=== PATIENT | male | born 1960 | race Caucasian/White ===

== ENCOUNTER 2019-03-04 23:43 | Inpatient (IN) | payer MEDICARE ==
[~2019-03-04] VITALS: Ht 185.4 cm; Wt 66.5 kg
[2019-03-05 07:51] LABS: Basophils # (auto) 0.1 uL; Basophils % (auto) 1.3 % (0.0-2.0); Eosinophils # (auto) 0.1 uL; Eosinophils % (auto) 2.1 % (0.0-7.0); Hematocrit 36.1 % (41.0-53.0); Hemoglobin 12.5 g/dL (13.5-17.5); Lymphocytes # (auto) 1.1 uL; Lymphocytes % (auto) 24.2 % (10.0-50.0); Mean Corpuscular Hemoglobin 32.8 pg (28.0-32.0); Mean Corpuscular Hgb Conc. 34.7 g/dL (32.0-36.0); Mean Corpuscular Volume 94.6 fL (80.0-100.0); Monocytes # (auto) 0.5 uL; Monocytes % (auto) 11.5 % (0.0-12.0); Neutrophils # (auto) 2.7 uL; Neutrophils % (auto) 60.9 % (37.0-80.0); Nucleated Red Blood Cells % 0.1 %; Platelet Count (auto) 312 10^3/uL (140-450); Red Blood Cells 3.82 10^6/uL (4.5-5.90); Red Cell Distribution Width 12.9 % (11.8-14.3); White Blood Cell 4.4 10^3/uL (4.4-10.8)
[2019-03-05 08:00] LABS: Urine Bacteria NONE SEEN /hpf (None Seen); Urine Blood Negative /uL (Negative); Urine Mucus FEW (None Seen); Urine Specific Gravity 1.015 (1.001-1.035); Urine Sperm PRESENT /hpf (None Seen); Urine WBC 1 /hpf (0 - 3)
[2019-03-05 08:08] LABS: BUN/Creatinine Ratio 13.8; Calcium 8.1 mg/dL (8.5-10.1); Potassium 4.3 mmol/L (3.5-5.1)
[2019-03-05] MEDS ORDERED: SODIUM CHLORIDE 0.9% 1,000 ML IV ONE ×2 (08:22)
[2019-03-05] MEDS ORDERED: AZITHROMYCIN 500MG/ 250ML 250 ML IV ONE (08:30)
[2019-03-05] MEDS ORDERED: cefTRIAXone 1GM/50ML D5W 50 ML IV ONE (08:30)
[2019-03-05] MEDS ORDERED: ALBUTEROL SULF 2.5 MG/0.5ML(0.5%) NEB SOLN NEB PRN (09:45)
[2019-03-05] MEDS ORDERED: PROMETHAZINE HCL 25 MG/ML 1ML IV PRN (09:45)
[2019-03-05] MEDS ORDERED: LEVOFLOXACIN 500MG 100 ML IV ONE (09:45)
[2019-03-05] MEDS ORDERED: ACETAMINOPHEN 500 MG TAB PO PRN (09:45)
[2019-03-05] MEDS ORDERED: NITROGLYCERIN 0.4 MG SL TAB SL PRN (09:45)
[2019-03-05] MEDS ORDERED: TEMAZEPAM 15 MG CAP PO PRN (09:45)
[2019-03-05] MEDS ORDERED: MORPHINE SULF INJ 2 MG/ML SYRINGE 1ML IV PRN (09:45)
[2019-03-05 10:15] LABS: CRP High Sensitivity 1.68 mg/dL (< 0.3)
[2019-03-05] MEDS: ENOXAPARIN SOD 40 MG/0.4 ML SYRINGE SC SCH (10:17)
[2019-03-05] MEDS: FAMOTIDINE (10MG/ML) 2ML VL IV SCH ×2 (10:23→21:08)
--- NOTE | 2019-03-05 10:45 | NUR ---
Telemetry admit from ER WILLY CONTRERAS admitted to Telemetry unit after SBAR received. Patient oriented to PEEWEE VERA, primary RN, unit, room, bed, and unit policies regarding patient care and visiting hours. Patient now on continuous telemetry monitoring, tele box # [id number] and telemetry reading on arrival to unit is . Patient placed on bedside oxygen, weighed by bed scale and encouraged to call if they need something. All questions and concerns addressed, patient verbalized understanding.
--- NOTE | 2019-03-05 11:00 | NUR ---
Wound photos taken to right leg.
[2019-03-05] MEDS: SODIUM CHLORIDE 0.9% 1,000 ML IV SCH ×2 (11:19→19:34)
[2019-03-05] MEDS: ALBUTEROL SULF 2.5 MG/0.5ML(0.5%) NEB SOLN NEB SCH ×2 (11:36→19:43)
[2019-03-05] MEDS: LEVOFLOXACIN 500MG 100 ML IV SCH (12:24)
[2019-03-05 12:39] VITALS: BP 136/86
[2019-03-05 13:00] VITALS: BP 117/77
[2019-03-05] MEDS: CLINDAMYCIN 600MG IV 50 ML IV SCH ×2 (13:53→21:08)
--- NOTE | 2019-03-05 17:12 | NUR ---
Received a call from dr. Ferguson stated will see patient tomorrow, NPO patient now.
[2019-03-05 17:18] VITALS: BP 145/86
--- NOTE | 2019-03-05 19:30 | NUR ---
Opening shift note Patient in bed alert and oriented x 4, verbally coherent, able to make needs known. Patient's respiration even and unlabored, denies pain and discomfort at this time. Plan of care discussed, patient verbalized understanding. Family at bedside. All needs attended, will continue to monitor. Addendum: 03/05/19 at 2056 by Aisha Marks RN Correction: no family at bedside.
--- NOTE | 2019-03-05 19:48 | NUR ---
RT NOTE PT WAS SEEN BY RT FOR HHN TX. PT TOLERATES WELL VIA MASK. NO ADVERSE REACTION NOTED. CONT ORDERED. POX 99% Addendum: 03/05/19 at 1948 by Hellen Ann RT Amended: Links added.
[2019-03-05] MEDS: traMADol HCL 50 MG TAB PO PRN (21:08)
[2019-03-05 22:00] VITALS: BP 133/84
[2019-03-06] MEDS: ALBUTEROL SULF 2.5 MG/0.5ML(0.5%) NEB SOLN NEB SCH ×3 (00:42→13:19)
--- NOTE | 2019-03-06 00:44 | NUR ---
RT NOTE PT WAS SEEN BY RT FOR HHN TX. PT TOLERATES WELL VIA MASK. NO ADVERSE REACTION NOTED. CONT ORDERED. POX 94% Addendum: 03/06/19 at 0045 by Hellen Ann RT Amended: Links added.
--- NOTE | 2019-03-06 04:34 | NUR ---
URINE SUKUMAR CX SAMPLE OBTAINED AND SENT TO LAB VIA BULLET.
[2019-03-06 05:00] VITALS: BP 142/86
[2019-03-06] MEDS: SODIUM CHLORIDE 0.9% 1,000 ML IV SCH (05:34)
[2019-03-06] MEDS: CLINDAMYCIN 600MG IV 50 ML IV SCH (06:07)
[2019-03-06 06:52] LABS: Basophils # (auto) 0.1 uL; Basophils % (auto) 1.9 % (0.0-2.0); Eosinophils # (auto) 0.1 uL; Eosinophils % (auto) 2.3 % (0.0-7.0); Hematocrit 39.2 % (41.0-53.0); Hemoglobin 13.7 g/dL (13.5-17.5); Lymphocytes # (auto) 1.1 uL; Lymphocytes % (auto) 24.2 % (10.0-50.0); Mean Corpuscular Hgb Conc. 34.9 g/dL (32.0-36.0); Mean Corpuscular Volume 94.5 fL (80.0-100.0); Monocytes # (auto) 0.4 uL; Monocytes % (auto) 8.6 % (0.0-12.0); Neutrophils # (auto) 2.8 uL; Nucleated Red Blood Cells % 0.1 %; Platelet Count (auto) 359 10^3/uL (140-450); Red Blood Cells 4.15 10^6/uL (4.5-5.90); Red Cell Distribution Width 12.6 % (11.8-14.3); White Blood Cell 4.5 10^3/uL (4.4-10.8)
[2019-03-06 06:55] LABS: INR 1.09 (0.9-1.15); Partial Thromboplastin Time 27.2 sec (23.64-32.05)
[2019-03-06 06:59] LABS: Albumin 2.6 g/dL (3.4-5.0); BUN/Creatinine Ratio 9.7; Calcium 8.6 mg/dL (8.5-10.1); Magnesium 2.1 mg/dL (1.6-2.6); Potassium 4.2 mmol/L (3.5-5.1)
[2019-03-06 07:01] LABS: Bilirubin, Total 0.7 mg/dL (0.2-1.0); Phosphorus 4.3 mg/dL (2.5-4.90); Total Protein 7.7 g/dL (6.4-8.2)
--- NOTE | 2019-03-06 07:02 | NUR ---
MRSA SWAB SPECIMEN OBTAINED SENT TO LAB VIA BULLET.
--- NOTE | 2019-03-06 07:10 | NUR ---
Resp cx specimen obtained sent to lab via bullet.
--- NOTE | 2019-03-06 08:00 | NUR ---
Opening Shift Note Assumed care of patient, awake and alert. No S/S of distress/SOB. Instructed on POC and to call for assist PRN. Bed in lowest position with siderails up x2 and call light within reach. will continue to monitor for changes Q1hr and PRN.
[2019-03-06 09:00] VITALS: BP 123/76
[2019-03-06] MEDS: FAMOTIDINE (10MG/ML) 2ML VL IV SCH (09:48)
[2019-03-06] MEDS: traMADol HCL 50 MG TAB PO PRN (09:49)
[2019-03-06] MEDS: ENOXAPARIN SOD 40 MG/0.4 ML SYRINGE SC SCH (09:50)
[2019-03-06] MEDS: LEVOFLOXACIN 500MG 100 ML IV SCH (09:50)
--- NOTE | 2019-03-06 10:30 | NUR ---
SURGICAL CONSULT Per Dr. Ferguson unable to perform surgery at this time secondary to pneumonia.
--- NOTE | 2019-03-06 11:15 | NUR ---
WOUND CARE NOTE: IN TO SEE PATIENT FOR WOUND ON RIGHT LEG. WOUND WAS PHOTOGRAPHED BY BEDSIDE NURSE UPON ADMIT. PATIENT ADVISED ME THAT HE WILL BE DISCHARGED SHORTLY D/T A FAMILY ISSUE. CLEANSED AND DRESSED WOUND TO THE RIGHT LEG AT THIS TIME. PATIENT ADVISED TO FOLLOW UP WITH HIS TRANSPORTATION MECHANIC POST DISCHARGE FOR HIS WOUND. PATIENT VERBALIZED UNDERSTANDING. PATIENT WILL DISCHARGE SHORTLY.
--- NOTE | 2019-03-06 13:19 | NUR ---
DISCHARGE Discharge instructions given as ordered. Encouraged to establish and follow up with PMD as instructed. All questions and concerns addressed, patient verbalized understanding. Medication reconciliation form completed and copy given to patient. IV removed with catheter intact and pressure dressing applied. Telemetry unit returned to ICU. Patient ambulated to vehicle with all personal belongings. No distress noted at time of departure.
== END 2019-03-06 13:30 | disposition home or self-care (01) | DRG 393 ==
LOC: ER 23:43 → TELE 23:44 → TELE-WESTW 03-05 10:42
PROVIDERS: ADMIT Internal Medicine; ATTEND Internal Medicine Pulmonary Disease
DX: K40.90 Unilateral inguinal hernia, without obstruction or gangrene, not specified as recurrent (principal); J18.1 Lobar pneumonia, unspecified organism; E46 Unspecified protein-calorie malnutrition; L03.115 Cellulitis of right lower limb; L02.415 Cutaneous abscess of right lower limb; Z68.1 Body mass index [BMI] 19.9 or less, adult; I70.0 Atherosclerosis of aorta; F17.210 Nicotine dependence, cigarettes, uncomplicated; B19.20 Unspecified viral hepatitis C without hepatic coma
CPT/HCPCS: 36415; 71045; 74176; 80048; 80053; 81001; 82150; 83605; 83690; 83735; 83880; 84100; 85025; 85610; 85652; 85730; 86141; 87040; 87070; 87077; 87081; 87086; 87205; 93970; 94640; 96361; 96365; 96367; 96372; G0378; J0696; J1956; J3490